=== PATIENT | female | born 1990 | race Caucasian/White ===

== ENCOUNTER 2022-07-13 04:13 | Day surgery (SDC) | payer BC ==
[2022-07-07 13:59] VITALS: BMI 36.0
[2022-07-13] MEDS ORDERED: LIDOCAINE HCL/PF 2% SDV 5ML VIAL ONE (07:29)
[2022-07-13] MEDS ORDERED: ONDANSETRON 4 MG/2 ML VIAL ONE ×2 (07:29→13:48)
[2022-07-13] MEDS ORDERED: DEXAMETHASONE SOD PHOSPHATE 4 MG/1 ML VIAL ONE (07:29)
[2022-07-13] MEDS ORDERED: MIDAZOLAM HCL 2 MG/2 ML SINGLE DOSE VIAL ONE (07:30)
[2022-07-13] MEDS ORDERED: ROCURONIUM BROMIDE 50 MG/5 ML SYRINGE ONE ×2 (07:30→08:51)
[2022-07-13] MEDS ORDERED: PROPOFOL 40 ML ONE (07:30)
[2022-07-13] MEDS ORDERED: SUCCINYLCHOLINE CHLORIDE 200 MG/10 ML SYRINGE ONE (07:30)
[2022-07-13] MEDS ORDERED: CEFOXITIN SODIUM 1 GM IVPB ONE (07:38)
[2022-07-13] MEDS ORDERED: cefOXitin SODIUM 2 GM VIAL (RESTRICTED TO ID) IVPB ONE ×2 (07:38→08:41)
[2022-07-13] MEDS ORDERED: BUPIVACAINE HCL/PF 0.25% (2.5MG/ML) 10 ML VIAL IJ ONE (08:52)
[2022-07-13] MEDS ORDERED: NEOSTIGMINE METHYLSULFATE 0.5 MG/1 ML - 10 ML MDV ONE (09:29)
[2022-07-13] MEDS ORDERED: GLYCOPYRROLATE 0.2 MG/1 ML VIAL ONE (09:29)
[2022-07-13] MEDS ORDERED: ONDANSETRON 4 MG/2 ML VIAL IVPUSH PRN (09:46)
[2022-07-13] MEDS ORDERED: oxyCODONE HCL 5 MG TABLET PO PRN (09:46)
[2022-07-13] MEDS ORDERED: LACTATED RINGERS SOLUTION 1,000 ML IV SCH (10:00)
[2022-07-13] MEDS ORDERED: oxyCODONE HCL 5 MG TABLET ONE (12:14)
[2022-07-13] MEDS ORDERED: oxyCODONE HCL 5 MG TABLET PO ONE (12:45)
[2022-07-13] MEDS ORDERED: ONDANSETRON 4 MG/2 ML VIAL IVPUSH ONE (13:45)
[2022-07-13 16:07] VITALS: BP 120/70; PULSE 92; RESP 16; TEMP 97.3
== END 2022-07-13 16:00 | disposition home or self-care (01) ==
LOC: JASU-SURG 04:13
PROVIDERS: ATTEND Surgery
PROC: 0FT44ZZ Resection of Gallbladder, Percutaneous Endoscopic Approach (ICD-10-PCS; principal; 2022-07-13 08:00)
DX: K81.1 Chronic cholecystitis (principal)
CPT/HCPCS: 81025; 88304-TC; 94760

== ENCOUNTER 2023-10-05 18:43 | Emergency (ER) | payer BC, OTHER ==
[2023-10-05 18:58] VITALS: BP 112/78; RESP 18; TEMP 98.8; BMI 36.0
[2023-10-05] MEDS ORDERED: ONDANSETRON 4 MG/2 ML VIAL ONE (20:10)
[2023-10-05] MEDS ORDERED: FAMOTIDINE 20 MG/50 ML IVPB 20 MG/50 ML MG IVPB ONE (20:10)
[2023-10-05] MEDS ORDERED: ACETAMINOPHEN INJECTION 100 ML IVPB ONE (20:10)
[2023-10-05 20:15] LABS: URINE APPEARANCE CLOUDY; URINE BILIRUBIN NEGATIVE (NEGATIVE); URINE COLOR YELLOW; URINE GLUCOSE (UA) NEGATIVE (NEGATIVE); URINE KETONE NEGATIVE (NEGATIVE); URINE LEUK ESTERASE NEGATIVE (NEGATIVE); URINE NITRITE NEGATIVE (NEGATIVE); URINE PROTEIN NEGATIVE (NEGATIVE)
[2023-10-05 20:15] LABS: HEMATOCRIT 38.9 % (32.4-45.2); HEMOGLOBIN 13.4 GM/dL (10.7-15.3); MCH 30.7 pg (25.7-33.7); MCHC 34.4 g/dl (32.0-36.0); MEAN CELL VOLUME 89.4 fl (80-96); MEAN PLT VOLUME 6.9 fl (7.5-11.1); PLATELET COUNT 319 10^3/uL (134-434); RBC 4.35 M/mm3 (3.60-5.2); RDW 12.7 % (11.6-15.6); WHITE BLOOD COUNT 6.9 K/mm3 (4.0-10.0)
[2023-10-05] MEDS: SODIUM CHLORIDE 1,000 ML IV STA (20:18)
[2023-10-05] MEDS: ACETAMINOPHEN 1000 MG/100 ML BAG IVPB ONE (20:18)
[2023-10-05] MEDS: ONDANSETRON 4 MG/2 ML VIAL IVPUSH ONE (20:19)
[2023-10-05] MEDS: FAMOTIDINE 20 MG/50 ML IVPB 20 MG/50 ML MG IVPB ONE (20:19)
[2023-10-05 20:36] LABS: POTASSIUM 4.1 mmol/L (3.5-5.1)
[2023-10-05 20:38] LABS: CALCIUM 9.1 mg/dL (8.5-10.1)
[2023-10-05 20:39] LABS: BLOOD UREA NITROGEN 8.4 mg/dL (7-18)
[2023-10-05 20:40] LABS: THROAT:GRP A STREP NOT DETECTED (NOTDETECTED)
[2023-10-05 20:42] LABS: CREATININE 0.7 mg/dL (0.55-1.3)
[2023-10-05 20:43] LABS: BILIRUBIN,TOTAL 0.4 mg/dL (0.2-1)
[2023-10-05 20:44] LABS: TOT PROT 7.6 g/dl (6.4-8.2)
[2023-10-05 20:51] LABS: HCG,QUALITATIVE URINE NEGATIVE
[2023-10-05 21:36] VITALS: PULSE 85
== END 2023-10-05 21:38 | disposition home or self-care (01) ==
LOC: JER 18:43
PROC: 3E033GC Introduction of Other Therapeutic Substance into Peripheral Vein, Percutaneous Approach (ICD-10-PCS; principal; 2023-10-05)
PROC: 3E030NZ Introduction of Analgesics, Hypnotics, Sedatives into Peripheral Vein, Open Approach (ICD-10-PCS; 2023-10-05)
PROC: 3E030GC Introduction of Other Therapeutic Substance into Peripheral Vein, Open Approach (ICD-10-PCS; 2023-10-05)
DX: R10.13 Epigastric pain (principal); R11.0 Nausea; R19.7 Diarrhea, unspecified; R05.9 Cough, unspecified; R09.81 Nasal congestion; M79.10 Myalgia, unspecified site; Z20.822 Contact with and (suspected) exposure to COVID-19
CPT/HCPCS: 0241U-QW; 36415; 76705-TC; 80053; 81003; 83690; 84703; 85027; 87086; 87651; 99284-25; J0131

== ENCOUNTER 2024-09-14 18:57 | Emergency (ER) | payer OTHER ==
[2024-09-14 19:04] VITALS: BP 135/82; PULSE 72; RESP 18; TEMP 98.7; BMI 34.9
== END 2024-09-14 20:40 | disposition home or self-care (01) ==
LOC: JERFT 18:57 → JER 18:57 → JERFT 20:40
DX: R09.A0 Foreign body sensation, unspecified (principal)
CPT/HCPCS: 70160-TC-FY; 99283-25